=== PATIENT | male | born 2005 | race Caucasian/White ===

== ENCOUNTER 2025-05-10 00:55 | Observation (INO) | payer OTHER, SELFPAY ==
[2025-05-10 01:30] LABS: #Basophils 0.03 10x3/uL (0.0-0.2); #Eosinophils 0.14 10x3/uL (0.0-0.5); #Monocytes 1.14 10x3/uL (0.0-1.1); #Neutrophils 8.77 10x3/uL (1.5-8.4); %Basophils 0.2 % (0.0-2.0); %Eosinophils 1.1 % (0.0-6.0); %Lymphocytes 17.0 % (18.0-47.0); %Monocytes 9.3 % (0.0-10.0); %Neutrophils 72.1 % (40.0-75.0); Hematocrit 41.7 % (38.8-50.0); Hemoglobin 13.8 g/dL (13.5-17.5); Mean Corpuscular Hemoglobin 27.6 pg (27.0-33.0); Mean Corpuscular Volume 83.4 fL (81.2-95.1); Platelet Count 184 10x3/uL (150-450); Red Blood Cell (RBC) Count 5.00 10x6/uL (4.32-5.72); White Blood Cell (WBC) Count 12.20 10x3/uL (3.5-10.5)
[2025-05-10 01:45] LABS: ALT (SGPT) 8 U/L (Less than 45); AST (SGOT) 22 U/L (11-34); Albumin 4.9 g/dL (3.1-4.5); Alkaline Phosphatase 63 U/L (50-130); Anion Gap 13 mmol/L (10-20); BUN (Urea Nitrogen) 12 mg/dL (8.4-21.0); Bilirubin, Total 0.7 mg/dL (0.3-1.2); Calc. Creatinine Clearance 0 mL/min (70-130); Calcium 9.5 mg/dL (7.8-10.44); Carbon Dioxide 26 mmol/L (22-29); Chloride 106 mmol/L (98-107); Globulin 2.7 g/dL (2.4-3.5); Glucose 117 mg/dL (70-105); Potassium 4.1 mmol/L (3.5-5.1); Sodium 141 mmol/L (136-145)
[2025-05-10 02:00] LABS: Glucose, Urine (Dipstick) Normal (Negative); Leukocyte Negative (Negative); Protein, Urine (Dipstick) Negative (Neg-Trace); Specific Gravity, Urine 1.015 (1.005-1.030)
[2025-05-10 02:09] LABS: Bacteria/HPF None Seen HPF (None Seen); CAUTI Indications for Culture Dysuria,urgency,freq; RBC/HPF None Seen HPF (0-3); WBC/HPF None Seen HPF (0-3)
[2025-05-10 02:10] LABS: Urine Culture Reflex No No
[2025-05-10] MEDS ORDERED: Ondansetron PF 4 MG/2 ML Vial ONE ×2 (02:13→09:47)
[2025-05-10] MEDS ORDERED: Ketorolac Tromethamine 30 MG (1 mL) VIAL ONE ×2 (02:13→09:47)
[2025-05-10] MEDS ORDERED: Ondansetron PF 4 MG/2 ML Vial IVP PRN (03:18)
[2025-05-10] MEDS ORDERED: Ketorolac Tromethamine 30 MG (1 mL) VIAL IVP PRN (03:18)
[2025-05-10 04:24] VITALS: BMI 21.7
[2025-05-10 08:25] VITALS: TEMP 98
[2025-05-10] MEDS ORDERED: PROPOFOL 20 ML ONE (09:09)
[2025-05-10] MEDS ORDERED: Bupivacaine/Epinephrine 0.25% 30 ML VIAL ONE (09:20)
[2025-05-10] MEDS ORDERED: HYDROcodone/Acetaminophen 5/325 mg Tablet PO PRN (09:39)
[2025-05-10] MEDS ORDERED: Rocuronium Bromide 10 MG/ML (10ML VIAL) ONE (09:47)
[2025-05-10] MEDS ORDERED: Bupivacaine HCl 0.5%/Epinephrine 1:200,000/PF 30 ml Vial ONE (10:04)
[2025-05-10] MEDS ORDERED: SUGAMMADEX SODIUM 200 MG/2 ML VIAL ONE (10:14)
[2025-05-10] MEDS ORDERED: Iopamidol 370 76% 100 ML VIAL ONE (10:31)
[2025-05-10 14:19] VITALS: BP 115/65
== END 2025-05-10 14:27 | disposition home or self-care (01) ==
LOC: CSHERS 00:55 → CSHTELE 03:17
PROVIDERS: ADMIT Surgery; ATTEND Surgery
PROC: 0DTJ4ZZ Resection of Appendix, Percutaneous Endoscopic Approach (ICD-10-PCS; principal; 2025-05-10)
DX: K35.33 Acute appendicitis with perforation, localized peritonitis, and gangrene, with abscess (principal)
CPT/HCPCS: 36415; 74177; 80053; 81001; 85025; 86850; 86900; 86901; 88304; 96365; 96375; A4649; G0378; J1100; J1885; J2543; J2704; J3010; J7120; Q9967